=== PATIENT | male | born 1975 | race Caucasian/White ===

== ENCOUNTER 2018-02-23 19:16 | Observation (INO) ==
[2018-02-23] MEDS ORDERED: *HR* FentaNYL (PF) 100 MCG/2 ML VIAL IVP ONE ×2 (19:43→20:55)
[2018-02-23] MEDS ORDERED: Ondansetron 4 MG/2 ML VIAL IVP ONE (19:43)
[2018-02-23 19:54] LABS: Bilirubin,Urine Negative (Negative); Blood,Urine Moderate (Negative); Clarity,Urine Clear (Clear); Color,Urine Yellow (Yellow); Glucose,Urine (UA) Normal (Normal); Ketones,Urine Negative (Negative); Leukocyte Esterase,Urine Negative (Negative); Nitrite,Urine Negative (Negative); Protein,Urine Trace mg/dL (Neg-Trace); Urobilinogen,Urine Normal (Normal)
[2018-02-23 19:56] LABS: Bacteria,Urine None Seen per hpf (None-Few); Hyaline Casts,Urine None Seen per lpf (None-Few); Squamous Epithelial Cell,Urine Many per lpf (None-Few); WBC,Urine 0-3 per hpf (0-3)
--- NOTE | 2018-02-23 19:59 | Emergency Department Note ---
Disposition Clinical Impression: Intractable pain, Kidney stone Disposition: Admitted As Inpatient Condition: Good Forms: ED Satisfaction Letter General Adult HPI - General Chief complaint: ED Urogenital-Male Stated complaint: "Kidney Stones" Time Seen by Provider: 02/23/18 19:32 Source: patient Mode of arrival: ambulatory Limitations: no limitations Nursing Notes Reviewed: Yes Vital Signs Reviewed: Yes - History of Present Illness HPI Narrative: 42-year-old male with significant past medical history of kidney stones presenting to the emergency department chief complaint of penile pain. Patient states for the past month he has been battling a kidney stone. Was seen here and diagnosed with kidney stone. He followed up with Dr. Loren bethea. He was unable to make the appointment due to pain. He came back to the emergency department at that time. Patient states he was taking Percocet at home but has run out. According to the patient he had a KUB x-ray completed that was within normal limits. He has a CT of abdomen and pelvis scheduled for tomorrow at 8: 30 AM. Patient states the pain is too severe and came in for further evaluation. Patient describes the pain at the base of his penis. Denies any abdominal pain, nausea or vomiting. Denies any fevers. Patient states that all of his previous kidney stones he has needed lithotripsy. Pain Scale: 8 - Related Data Home Medications Medication Instructions Recorded Confirmed clonazePAM [Klonopin] 0.5 mg PO BID PRN 11/24/15 01/27/17 Previous Rx's Medication Instructions Recorded OxyCODONE/APAP 5/325 [Percocet 1 each PO Q6HR PRN 5 Days #20 02/17/18 5/325 MG] tablet Allergies Allergy/AdvReac Type Severity Reaction Status Date / Time ketamine AdvReac Dizziness Verified 02/17/18 09:35 meloxicam AdvReac Nausea Verified 02/17/18 09:35 All systems ED: reviewed and negative except as stated. Constitutional: Denies: fever, chills, weakness Eyes: Reports: as per HPI ENT ED: Reports: as per HPI Cardiovascular: Denies: chest pain, palpitations, dyspnea on exertion Respiratory: Denies: cough, dyspnea, wheezes Gastrointestinal: Denies: abdominal pain, nausea, vomiting Genitourinary: Reports: as per HPI Musculoskeletal: Reports: as per HPI Integumentary: Reports: as per HPI Neurological: Denies: weakness, numbness, paresthesias Psychiatric: Reports: as per HPI Endocrine: Reports: as per HPI Hematological/Lymphatic: Reports: as per HPI Allergic/Immunologic: Reports: as per HPI Past Medical History - Past Medical History Attestation: Yes The following information was validated with the patient. Medical history: Reports: kidney stones Surgical history: Reports: appendectomy, other Psychiatric history: Reports: anxiety - Social History Smoking Status: Never smoker Smokeless Tobacco Status: No Alcohol use: Reports: none Drug use: Reports: none Physical Exam - General Limitations: no limitations General appearance: alert - Head Head exam: atraumatic, normocephalic, normal inspection - Eye Eye exam: Present: normal appearance. Absent: scleral icterus, conjunctival injection - ENT ENT exam: normal exam, mucous membranes moist - Neck Neck exam: Present: normal inspection, full ROM. Absent: tenderness, meningismus - Chest Chest inspection: Present: normal inspection, symmetric chest wall rise. Absent : tenderness, rash - Respiratory Respiratory exam: Present: normal lung sounds bilaterally. Absent: respiratory distress, wheezes - Cardiovascular Cardiovascular exam: Present: normal rhythm, tachycardia, normal heart sounds - Abdominal Exam Abdominal exam: Present: soft, Non-Tender. Absent: distention, guarding, rebound - Male exam: Present: normal inspection, normal testicular lie. Absent: penile swelling, lesions, testicular tenderness, urethral discharge, scrotal swelling - Extremities Exam Extremities exam: Present: normal inspection, full ROM - Neurological Exam Neurological exam: Present: alert, oriented X3 - Psychiatric Psychiatric exam: Present: normal affect, normal mood - Skin Skin exam: Present: warm, intact Course Course Narrative: 42-year-old male presenting with chief complaint of penile pain. Patient states penile pain at the base. Patient is alert and oriented 3 in the room. He is tachycardic and hypertensive but otherwise vital signs stable. Physical exam benign. Patient has no penile or testicular tenderness on exam. He states the pain is "deep". At this time we will obtain a urinalysis, CBC, BMP along with a CT of the abdomen and pelvis. Disposition pending results. Patient agrees with this plan. - Reevaluation(s) Reevaluation #1: Patient laboratory analysis benign. Urinalysis shows blood but no infection. After multiple pain management times with Toradol final patient still having significant pain. CT of abdomen and pelvis shows 5 mm stone. I spoke with the urologist on-call Dr. Siddiqi and who agrees that admission for this patient is appropriate. He states that scheduled pain management should be completed and he will provide surgical intervention on Monday. Patient is alert and oriented 3 in the room. His blood pressure has now decreased to 170 systolic. His heart rate has now decreased to 95. Otherwise vital signs stable. Patient agrees to admission. I spoke with the hospitalist on-call who agrees to accept the patient at this time. Vital Signs Temperature 98.2 F 02/23/18 19:28 Pulse Rate 105 02/23/18 19:28 Respiratory Rate 20 02/23/18 19:28 Blood Pressure 222/117 02/23/18 19:28 O2 Sat by Pulse Oximetry 95 02/23/18 19:28 Temperature 98.2 F 02/23/18 20:00 Pulse Rate 98 02/23/18 21:08 Respiratory Rate 20 02/23/18 20:00 Blood Pressure 170/115 02/23/18 21:08 O2 Sat by Pulse Oximetry 95 02/23/18 20:00 Oxygen Delivery Oxygen Delivery Room Air Medical Decision Making - Lab Data Result diagrams: 02/23/18 19:54 02/23/18 19:54 Lab Results 02/23/18 02/23/18 02/23/18 Range/Units 19:42 19:54 19:54 WBC 12.5 H (4.3-11.1) K/mcL RBC 5.13 (4.19-5.50) M/mcL Hgb 14.7 (12.9-16.9) g/dL Hct 43.2 (37.5-50.1) % MCV 84.2 (83.0-100.0) fL MCH 28.7 (28.0-33.3) pg MCHC 34.0 (31.6-35.5) g/dL RDW 12.9 (11.5-14.5) % Plt Count 246 (140-400) K/mcL MPV 9.8 (9.4-12.4) fL Immature Gran % 0.4 (0-4) % Seg Neutrophils % 68.9 % Lymphocytes % 22.0 % Monocytes % 6.7 % Eosinophils % 1.8 % Basophils % 0.2 % Neutrophils # 8.6 (1.6-8.9) K/mcL Lymphocytes # 2.8 (0.6-4.6) K/mcL Monocytes # 0.8 (0.0-1.3) K/mcL Eosinophils # 0.2 (0.0-0.6) K/mcL Basophils # 0.0 (0.0-0.2) K/mcL Sodium 137 (136-145) mEq/L Potassium 3.6 (3.5-5.1) mEq/L Chloride 106 (98-107) mEq/L Carbon Dioxide 22 L (23-29) mEq/L BUN 12 (6-20) mg/dL Creatinine 1.03 (0.70-1.30) mg/dL Est GFR ( Amer) > 60 (> 60) Est GFR (Non-Af Amer) > 60 (> 60) BUN/Creatinine Ratio 12 (6-26) Glucose 124 H (70-105) mg/dL Calculated Osmolality 285 (280-300) Calcium 9.4 (8.6-10.3) mg/dL Urine Color Yellow (Yellow) Urine Clarity Clear (Clear) Urine pH 6.0 (5.0-8.0) pH Units Ur Specific [place] 1.020 (1.010-1.025) Urine Protein Trace (Neg-Trace) mg/dL Urine Glucose (UA) Normal (Normal) mg/dL Urine Ketones Negative (Negative) mg/dL Urine Blood Moderate H (Negative) Urine Nitrite Negative (Negative) Urine Bilirubin Negative (Negative) Urine Urobilinogen Normal (Normal) mg/dL Ur Leukocyte Esterase Negative (Negative) Urine Microscopic RBC 5-15 H (0-3) per hpf Urine Microscopic WBC 0-3 (0-3) per hpf Ur Squamous Epith Cells Many H (None-Few) per lpf Urine Bacteria None Seen (None-Few) per hpf Hyaline Casts None Seen (None-Few) per lpf Ur Culture Indicated? NO (NO)
[2018-02-23 20:05] LABS: Basophils % 0.2 %; Eosinophils # 0.2 K/mcL (0.0-0.6); Eosinophils % 1.8 %; Hematocrit 43.2 % (37.5-50.1); Hemoglobin 14.7 g/dL (12.9-16.9); Immature Granulocytes % 0.4 % (0-4); Lymphocytes # 2.8 K/mcL (0.6-4.6); Mean Corpuscular Hemoglobin 28.7 pg (28.0-33.3); Mean Corpuscular Volume 84.2 fL (83.0-100.0); Mean Platelet Volume 9.8 fL (9.4-12.4); Monocytes # 0.8 K/mcL (0.0-1.3); Monocytes % 6.7 %; Neutrophils # 8.6 K/mcL (1.6-8.9); Platelet Count 246 K/mcL (140-400); Red Blood Count 5.13 M/mcL (4.19-5.50); Red Cell Distribution Width 12.9 % (11.5-14.5); Segmented Neutrophils % 68.9 %
[2018-02-23] MEDS ORDERED: Ketorolac 15 MG/ML VIAL IVP ONE (20:20)
[2018-02-23 20:25] LABS: BUN/Creatinine Ratio 12 (6-26); Blood Urea Nitrogen 12 mg/dL (6-20); Calcium 9.4 mg/dL (8.6-10.3); Carbon Dioxide 22 mEq/L (23-29); Chloride 106 mEq/L (98-107); Glucose 124 mg/dL (70-105); Osmolality,Calculated 285 (280-300); Potassium 3.6 mEq/L (3.5-5.1); Sodium 137 mEq/L (136-145); eGFR For Non-African Americans > 60 (> 60)
[2018-02-23] MEDS ORDERED: Naloxone 0.4 MG/ML INJ IVP PRN (21:20)
[2018-02-23] MEDS ORDERED: clonazePAM 1 MG TABLET PO PRN (21:34)
--- NOTE | 2018-02-23 21:37 | Emergency Department Note ---
Disposition Clinical Impression: Intractable pain, Kidney stone Disposition: Admitted As Inpatient Condition: Good Referrals: Arias Mendoza MD [Primary Care Provider] - Forms: ED Satisfaction Letter General Adult HPI - General Chief complaint: ED Urogenital-Male Stated complaint: "Kidney Stones" Time Seen by Provider: 02/23/18 19:32 Source: patient Mode of arrival: ambulatory Limitations: no limitations Nursing Notes Reviewed: Yes Vital Signs Reviewed: Yes - History of Present Illness Pain Scale: 8 - Related Data Home Medications Medication Instructions Recorded Confirmed Omeprazole [PriLOSEC] 40 mg PO BID 02/23/18 02/23/18 clonazePAM [Klonopin] 1 mg PO BID PRN 02/23/18 02/23/18 Previous Rx's Medication Instructions Recorded OxyCODONE/APAP 5/325 [Percocet 1 each PO Q6HR PRN 5 Days #20 02/17/18 5/325 MG] tablet Allergies Allergy/AdvReac Type Severity Reaction Status Date / Time ketamine AdvReac Dizziness Verified 02/17/18 09:35 meloxicam AdvReac Nausea Verified 02/17/18 09:35 Constitutional: Denies: fever, chills, weakness Eyes: Reports: as per HPI ENT ED: Reports: as per HPI Cardiovascular: Denies: chest pain, palpitations, dyspnea on exertion Respiratory: Denies: cough, dyspnea, wheezes Gastrointestinal: Denies: abdominal pain, nausea, vomiting Genitourinary: Reports: as per HPI Musculoskeletal: Reports: as per HPI Integumentary: Reports: as per HPI Neurological: Denies: weakness, numbness, paresthesias Psychiatric: Reports: as per HPI Endocrine: Reports: as per HPI Hematological/Lymphatic: Reports: as per HPI Allergic/Immunologic: Reports: as per HPI Past Medical History - Past Medical History Medical history: Reports: kidney stones Surgical history: Reports: appendectomy, other Psychiatric history: Reports: anxiety - Social History Smoking Status: Never smoker Smokeless Tobacco Status: No Alcohol use: Reports: none Drug use: Reports: none Physical Exam - General Limitations: no limitations General appearance: alert Course Vital Signs Temperature 98.2 F 02/23/18 19:28 Pulse Rate 105 02/23/18 19:28 Respiratory Rate 20 02/23/18 19:28 Blood Pressure 222/117 02/23/18 19:28 O2 Sat by Pulse Oximetry 95 02/23/18 19:28 Temperature 98.2 F 02/23/18 20:00 Pulse Rate 98 02/23/18 21:08 Respiratory Rate 20 02/23/18 20:00 Blood Pressure 170/115 02/23/18 21:08 O2 Sat by Pulse Oximetry 95 02/23/18 20:00 Oxygen Delivery Oxygen Delivery Room Air Medical Decision Making - Medical Records Medical records reviewed: Yes I reviewed the patient's medical records. - Lab Data Lab results reviewed: Yes I reviewed the patient's lab results. Result diagrams: 02/23/18 19:54 02/23/18 19:54 Lab Results 02/23/18 02/23/18 02/23/18 Range/Units 19:42 19:54 19:54 WBC 12.5 H (4.3-11.1) K/mcL RBC 5.13 (4.19-5.50) M/mcL Hgb 14.7 (12.9-16.9) g/dL Hct 43.2 (37.5-50.1) % MCV 84.2 (83.0-100.0) fL MCH 28.7 (28.0-33.3) pg MCHC 34.0 (31.6-35.5) g/dL RDW 12.9 (11.5-14.5) % Plt Count 246 (140-400) K/mcL MPV 9.8 (9.4-12.4) fL Immature Gran % 0.4 (0-4) % Seg Neutrophils % 68.9 % Lymphocytes % 22.0 % Monocytes % 6.7 % Eosinophils % 1.8 % Basophils % 0.2 % Neutrophils # 8.6 (1.6-8.9) K/mcL Lymphocytes # 2.8 (0.6-4.6) K/mcL Monocytes # 0.8 (0.0-1.3) K/mcL Eosinophils # 0.2 (0.0-0.6) K/mcL Basophils # 0.0 (0.0-0.2) K/mcL Sodium 137 (136-145) mEq/L Potassium 3.6 (3.5-5.1) mEq/L Chloride 106 (98-107) mEq/L Carbon Dioxide 22 L (23-29) mEq/L BUN 12 (6-20) mg/dL Creatinine 1.03 (0.70-1.30) mg/dL Est GFR ( Amer) > 60 (> 60) Est GFR (Non-Af Amer) > 60 (> 60) BUN/Creatinine Ratio 12 (6-26) Glucose 124 H (70-105) mg/dL Calculated Osmolality 285 (280-300) Calcium 9.4 (8.6-10.3) mg/dL Urine Color Yellow (Yellow) Urine Clarity Clear (Clear) Urine pH 6.0 (5.0-8.0) pH Units Ur Specific [place] 1.020 (1.010-1.025) Urine Protein Trace (Neg-Trace) mg/dL Urine Glucose (UA) Normal (Normal) mg/dL Urine Ketones Negative (Negative) mg/dL Urine Blood Moderate H (Negative) Urine Nitrite Negative (Negative) Urine Bilirubin Negative (Negative) Urine Urobilinogen Normal (Normal) mg/dL Ur Leukocyte Esterase Negative (Negative) Urine Microscopic RBC 5-15 H (0-3) per hpf Urine Microscopic WBC 0-3 (0-3) per hpf Ur Squamous Epith Cells Many H (None-Few) per lpf Urine Bacteria None Seen (None-Few) per hpf Hyaline Casts None Seen (None-Few) per lpf Ur Culture Indicated? NO (NO) - Radiology Data Radiology results reviewed: Yes I reviewed the patient's radiology results. Abdomen/Pelvis CT 02/23/18 19:42 IMPRESSION: 5 mm obstructing calculus in the distal right ureter with minimal right hydronephrosis. Additional nonobstructing calculi noted bilaterally. D/ / 02/23/2018 20:42:18 Kiran Claudio MD / [email or web address] Interpreting Provider: Kiran Claudio MD Attestation Statement - Attestation Attestation: I, Hamlet Grady MD, personally evaluated this patient and discussed their management with the resident physician. I reviewed the resident's note and agree with the documented findings, medical decision making, and plan of care. 42-year-old male presents to the emergency department with a complaint of pain at the base of his penis and down into his scrotum secondary to kidney stone. Patient was seen here about 4 weeks for a right kidney stone. He was treated and the pain improved. About 2 weeks later the pain returned. He was seen here again a second time and has had pain since then. He had a follow-up appointment with urology but missed the appointment because of the pain. He returns tonight for the third visit this month with a complaint of worsening pain and no fever. No gross hematuria. On examination patient is a well-developed well-nourished male in no acute distress. He does appear to be in moderate discomfort. He is alert and oriented 3. There is no cyanosis or diaphoresis. Breath sounds are clear and equal bilaterally. Heart regular rate and rhythm. Abdomen is soft and nontender with normal bowel sounds. No CVA tenderness. Labs and CT reviewed. CT does show a distal 5 mm obstructing stone on the right. Dr. Martinez discussed the case with the urologist occupational work experience teacher, Dr. Siddiqi, and he recommended admission by the hospitalist and he will consult on the patient tomorrow. The hospitalist, Dr. Carreno, was consulted and accepted admission of the patient.
--- NOTE | 2018-02-23 21:49 | Internal Med History&Physical ---
<Rodrigo Bocanegra - Last Filed: 02/23/18 21:46> Date of Encounter: 02/23/18 Time of Encounter: 21:46 Internal Medicine - H&P: HPI Chief complaint: Kidney stone Admitted From: Home Plans for Post Hospital Care: Home History of present illness: Mr. Dailey is a 42 year old male presented chief complaint kidney stones. Patient reports that he has a history of kidney stones and his past distended 18 his life. For the past month he has been grappling with penile/testicular pain. Reports he has passed one stone in the past month however he continued to have penile pain at the base of his penis as aching and intermittently sharp 10 out of 10 in nature without associated dysuria. Patient had a appointment , urologist, however this was March 06 and he had run out of his pain medication. His pain became severe and he presented to the ER for further evaluation. He also denies abdominal pain, nausea, vomiting, flank pain, fevers. Past Med Surg Social Fam HX - Past Medical History Medical history: kidney stones Additional medical history: SMOKER. BACK PAIN Psychiatric history: anxiety - Past Surgical History Surgical History: appendectomy, other Additional surgical history: EGD. ESWL X4. KIDNEY STONE EXTRACTION - Social History Smoking Status: Never smoker Smokeless Tobacco Status: No Alcohol use: none Drug use: none Occupational status: disabled - Family History Mother Living Status: Hx Family Cardiac Disorders: Yes Hx Family GI Disorders: Yes (gastroporesis) Hx Family Endocrine Disorder: Yes (fibromyalgia) Father Living Status: Still Living Hx Family Cardiac Disorders: Yes (HTN) Internal Medicine - H&P: Meds OxyCODONE/APAP 5/325 [Percocet 5/325 MG] 1 each PO Q6HR PRN 5 Days #20 tablet [Rx] Omeprazole [PriLOSEC] 40 mg PO BID 02/23/18 [History] clonazePAM [Klonopin] 1 mg PO BID PRN 02/23/18 [History] HYDROcodone/Acet 5/325 mg [[place] 5-325 mg] 1 tab PO Q6H PRN 2 Days #6 tab [Rx] hydroCHLOROthiazide [Hydrochlorothiazide] 25 mg PO DAILY #30 tablet 02/25/18 [Rx ] 3 Allergy/AdvReac Type Severity Reaction Status Date / Time ketamine AdvReac Dizziness Verified 02/17/18 09:35 meloxicam AdvReac Nausea Verified 02/17/18 09:35 All Systems PM: A 10-system review of systems was performed and is negative for pertinent findings except as documented above in the HPI. Review of systems: Constitutional: Denies fever, chills HEENT: Denies headache, vision changes, neck pain, sore throat, rhinorrhea Heart: Denies chest pain palpitations Lungs: Denies shortness of breath cough Abdomen: Denies abdominal pain nausea vomiting diarrhea Back: Denies back pain Kidney: Denies dysuria, hematuria. Denies flank pain : Penile pain, denies discharge Skin: Denies rash, lesions Extremities: Denies swelling, pain Neuro: Denies numbness and tingling - Constitutional Vitals: Temp Pulse Resp BP Pulse Ox 98.2 F 98 20 170/115 95 02/23/18 20:00 02/23/18 21:08 02/23/18 20:00 02/23/18 21:08 02/23/18 20:00 Exam: General: Pleasant I will distress HEENT: Head atraumatic, normocephalic, EOMI, PERRL, neck nontender to palpation , absent lymphadenopathy, Moist Mucous Membranes, Heart: Regular rate and rhythm with no murmur Lungs: Clear to auscultation bilaterally Abdomen: Soft nontender, nondistended positive bowel sounds Skin: warm and dry, absent rash Extremities: Absent pedal edema, Neuro: Cranial nerves II through XII intact, UE and LE sensation equal bilaterally, UE and LEstrength 5/5, alert oriented 3, Vascular: Pedal and radial pulses 2 out of 4 Internal Med - H&P Results - Labs CBC & Chem 7: 02/23/18 19:54 02/23/18 19:54 Labs: Short CBC 02/23/18 Range/Units 19:54 WBC 12.5 H (4.3-11.1) K/mcL Hgb 14.7 (12.9-16.9) g/dL Hct 43.2 (37.5-50.1) % Plt Count 246 (140-400) K/mcL Neutrophils # 8.6 (1.6-8.9) K/mcL BMP 02/23/18 19:54 Sodium 137 Potassium 3.6 Chloride 106 Carbon Dioxide 22 L BUN 12 Creatinine 1.03 Glucose 124 H Calcium 9.4 Urine 02/23/18 Range/Units 19:42 Urine Color Yellow (Yellow) Urine Clarity Clear (Clear) Urine pH 6.0 (5.0-8.0) pH Units Ur Specific [place] 1.020 (1.010-1.025) Urine Protein Trace (Neg-Trace) mg/dL Urine Glucose (UA) Normal (Normal) mg/dL - Impressions ITS Impressions Abdomen/Pelvis CT 02/23/18 19:42 IMPRESSION: 5 mm obstructing calculus in the distal right ureter with minimal right hydronephrosis. Additional nonobstructing calculi noted bilaterally. D/ / 02/23/2018 20:42:18 Kiran Claudio MD / [facility] Interpreting Provider: Kiran Claudio MD - Assessment and plan (1) Hydronephrosis with obstructing calculus Status: Acute Assessment and plan: 42 -year-old patient presented with chief complaint of sharp/aching pain at the base of his penis Patient has history of kidney stones and reports he has had multiple visits to the ER in the past month and has passed one stone Patient has been using Percocet for pain control CT abdomen pelvis shows a 5 mm obstructing calculi in the right ureter with mild hydronephrosis Urology was consulted and patient will undergo surgical intervention on Monday. Plan: Oxycodone/tordol when necessary for pain control, Flomax, IV fluids. (2) DVT prophylaxis Status: Acute Assessment and plan: Heparin subcutaneous (3) Hx of anxiety disorder Status: Acute Assessment and plan: Patient has history of anxiety disorder He takes Klonopin outpatient which we will continue. (4) Hypertension Status: Acute Assessment and plan: Patient does not have a history of hypertension Presenting blood pressure was in systolics to 220s. But now decreased to systolics 170s. Likely secondary to pain We will trend blood pressure. Qualifiers: Hypertension type: other secondary hypertension Qualified Code(s): I15.8 - Other secondary hypertension (5) Kidney stone Status: Acute Assessment and plan: Patient has a history of kidney stones Reports her calcium oxalate He has passsed 70- 80 stones in his life and underwent multiple lithotripsies. Patient has never been on a thiazide diuretic which can help decrease stone formation. (6) Hx of gastroesophageal reflux (GERD) Status: Acute Assessment and plan: Patient's history of gastric reflux disease Continue omeprazole. - Time Spent With Patient Total time spent is greater than 50% in coordination of care (as documented) at patient's floor/unit and/or counseling patient: <Veronica Alvarado - Last Filed: 02/25/18 23:31> Date of Encounter: 02/23/18 Internal Medicine - H&P: HPI History of present illness: Mr. Dailey is a 42 year old male All Systems PM: A 10-system review of systems was performed and is negative for pertinent findings except as documented above in the HPI. - Constitutional Vitals: Temp Pulse Resp BP Pulse Ox 98.3 F 105 16 158/91 94 02/25/18 10:30 02/25/18 10:30 02/25/18 10:30 02/25/18 14:15 02/25/18 10:30 Internal Med - H&P Results - Labs CBC & Chem 7: 02/25/18 06:09 02/25/18 06:09 Labs: Short CBC 02/25/18 Range/Units 06:09 WBC 12.4 H (4.3-11.1) K/mcL Hgb 14.2 (12.9-16.9) g/dL Hct 42.3 (37.5-50.1) % Plt Count 229 (140-400) K/mcL Neutrophils # 8.2 (1.6-8.9) K/mcL BMP 02/25/18 06:09 Sodium 136 Potassium 3.6 Chloride 101 Carbon Dioxide 25 BUN 13 Creatinine 1.10 Glucose 97 Calcium 9.4 - Assessment and plan (1) Hypertension Status: Acute Qualifiers: Hypertension type: other secondary hypertension Qualified Code(s): I15.8 - Other secondary hypertension (2) DVT prophylaxis Status: Acute (3) Kidney stone Status: Acute (4) Hydronephrosis with obstructing calculus Status: Acute (5) Hx of anxiety disorder Status: Chronic (6) Hx of gastroesophageal reflux (GERD) Status: Chronic - Time Spent With Patient Total time spent is greater than 50% in coordination of care (as documented) at patient's floor/unit and/or counseling patient: - Attending Attestation Patient seen and examined. Chart reviewed. Case discussed with resident. Agree with assessment and plan. We will admit for observation for nephrolithiasis. Consider urology consult in the morning.
[2018-02-23] MEDS: 0.9 % Sodium Chloride 1,000 ML IVC SCH (22:56)
[2018-02-23] MEDS: *HR* OxyCODONE Immed Rel 5 MG TABLET PO PRN (22:56)
[2018-02-23] MEDS: *HR* Heparin 5,000 UNIT/ML VIAL SQ SCH (22:57)
[2018-02-24] MEDS: Ketorolac 15 MG/ML VIAL IVP PRN ×3 (00:32→16:19)
[2018-02-24] MEDS ORDERED: *HR* Nalbuphine 10 MG/ML AMPUL IVP ONE (00:46)
[2018-02-24] MEDS: Ondansetron 4 MG/2 ML VIAL IVP PRN ×3 (02:24→16:19)
[2018-02-24] MEDS: *HR* Heparin 5,000 UNIT/ML VIAL SQ SCH ×3 (04:52→20:58)
[2018-02-24] MEDS: 0.9 % Sodium Chloride 1,000 ML IVC SCH (04:58)
[2018-02-24] MEDS: *HR* OxyCODONE Immed Rel 5 MG TABLET PO PRN (04:59)
[2018-02-24 06:46] LABS: Hematocrit 40.3 % (37.5-50.1); Hemoglobin 13.3 g/dL (12.9-16.9); Mean Corpuscular Hemoglobin 28.4 pg (28.0-33.3); Mean Corpuscular Volume 86.1 fL (83.0-100.0); Mean Platelet Volume 9.9 fL (9.4-12.4); Platelet Count 214 K/mcL (140-400); Red Blood Count 4.68 M/mcL (4.19-5.50)
[2018-02-24 07:07] LABS: Alanine Aminotransferase 32 Units/L (7-52); Albumin 3.7 g/dL (3.5-5.7); Albumin/Globulin Ratio 1.5 (1.1-2.2); Alkaline Phosphatase 75 Units/L (34-104); Aspartate Amino Transferase 19 Units/L (13-39); BUN/Creatinine Ratio 13 (6-26); Bilirubin,Total 0.2 mg/dL (0.3-1.0); Blood Urea Nitrogen 13 mg/dL (6-20); Calcium 8.6 mg/dL (8.6-10.3); Carbon Dioxide 25 mEq/L (23-29); Chloride 107 mEq/L (98-107); Globulin 2.4 g/dL (2.4-3.5); Glucose 130 mg/dL (70-105); Osmolality,Calculated 286 (280-300); Potassium 3.5 mEq/L (3.5-5.1); Sodium 137 mEq/L (136-145); Total Protein 6.1 g/dL (6.4-8.9); eGFR For Non-African Americans > 60 (> 60)
[2018-02-24] MEDS: *HR* HYDROmorphone 2 MG/ML SYRINGE IVP PRN ×2 (09:38→13:53)
--- NOTE | 2018-02-24 10:56 | Internal Med Progress Note ---
Hospitalist Progress Note - Encounter Date of Encounter: 02/24/18 Time of Encounter: 10:15 - Subjective Interval History: Pt was seen and assessed at bedside at 1015. He is alert, awake, oriented, pleasant, and appears to be comfortable. We discussed his blood pressure and he reports that he did not like the way the hydralazine made him feel and that he had taken HCTZ in the past, will try it. He denies nausea, vomiting, diarrhea, abdominal pain, chest pain, shortness of breath of vision changes. He denies merle hematuria and at this time denies flank pain. Pt will have urological procedure tomorrow by Dr. Siddiqi, he is aware and denies questions. - Exam Vitals: Temp Pulse Resp BP Pulse Ox 98.3 F 58 18 187/103 96 02/24/18 10:02/24/18 10:02/24/18 10:01 02/24/18 10:02/24/18 10:01 Exam: General: Pt resting quietly on bed, no distress. Skin: pwd, no rashes, lesions, redness Neurological: Pt is alert and awake, oriented x 3, Speech is clear, PERRLA, EOMI , no nystagmus, no pronator drift. strength equal x 4 extremities HEENT: mucous mumbranes moist, no conjuctival pallor Neck: supple, no tracheal deviation, no lymphadenopathy, tenderness, no thyromegaly Heart: S1S2 heard without gallops, clicks, murmurs, no bradycardia or tachycardia, pt has no peripheral edema, pedal and radial pulses palpable bilaterally. Lungs: clear throughout without wheezing, rales, or ronchi, respirations are unlabored Abdomen: soft and non tender with bowel sound present, no hepatomegaly. Psych: Normal affect with good eye contact - Assessment and Plan (1) Hypertension Current Visit: Yes Status: Acute Assessment and Plan: Patient does not have a history of hypertension other than when he has kidney stones. Presenting blood pressure was in systolics to 220s. Little to no change in BP with hydralazine IV. Pt states that he took HCTZ in the past for same. Started this a.m. Likely secondary to pain We will trend blood pressure. (2) DVT prophylaxis Current Visit: Yes Status: Acute Assessment and Plan: Heparin subcutaneous, pt is ambulatory. (3) Kidney stone Current Visit: Yes Status: Acute Assessment and Plan: Patient has a history of calcium oxalate kidney stones He has passsed 70- 80 stones in his life and underwent multiple lithotripsies. Patient has never been on a thiazide diuretic which can help decrease stone formation. Pt has 5 mm obstructing stone in distal right ureter with minimal right hydronephrosis, as well as additional nonobstructin calculi noted bilaterally. IVF hydration pain control urology following- procedure tomorrow. (4) Hydronephrosis with obstructing calculus Current Visit: Yes Status: Acute Assessment and Plan: 42 -year-old patient presented with chief complaint of sharp/aching pain at the base of his penis Reports he has had multiple visits to the ER in the past month and has passed one stone Patient has been using Percocet for pain control CT abdomen pelvis shows a 5 mm obstructing calculi in the right ureter with mild hydronephrosis Urology following, surgical intervention on Monday. Pain control: Oxycodone, Toradol. Flomax IVF hydration (5) Hx of anxiety disorder Current Visit: Yes Status: Chronic Assessment and Plan: Chronic. Continue Klonipin home dose. (6) Hx of gastroesophageal reflux (GERD) Current Visit: Yes Status: Chronic Assessment and Plan: Chronic. Continue home dose of Omeprazole. - Time Spent with Patient Total time spent is greater than 50% in coordination of care (as documented) at patient's floor/unit and/or counseling patient: less than 15 minutes Plan of Care Discussed with: patient Internal Medicine: Result - Labs CBC & Chem 7: 02/24/18 06:11 02/24/18 06:11 Labs: Short CBC 02/24/18 Range/Units 06:11 WBC 10.3 (4.3-11.1) K/mcL Hgb 13.3 (12.9-16.9) g/dL Hct 40.3 (37.5-50.1) % Plt Count 214 (140-400) K/mcL BMP 02/24/18 06:11 Sodium 137 Potassium 3.5 Chloride 107 Carbon Dioxide 25 BUN 13 Creatinine 1.03 Glucose 130 H Calcium 8.6 Liver Function 02/24/18 Range/Units 06:11 Total Bilirubin 0.2 L (0.3-1.0) mg/dL AST 19 (13-39) Units/L ALT 32 (7-52) Units/L Alkaline Phosphatase 75 (34-104) Units/L Albumin 3.7 (3.5-5.7) g/dL Consult Discharge Plan - Plan Referrals: Arias Mendoza MD [Primary Care Provider] - (1) Hypertension Qualifiers: Hypertension type: other secondary hypertension Qualified Code(s): I15.8 - Other secondary hypertension
[2018-02-24] MEDS ORDERED: hydroCHLOROthiazide 25 MG TABLET PO SCH (11:00)
--- NOTE | 2018-02-24 12:17 | Urology - Consult Note ---
Date of Encounter: 02/24/18 Time of Encounter: 12:14 - Assessment and Plan (1) Right distal ureteral calculus Current Visit: Yes Status: Acute Assessment and plan: We will attempt medical expulsion therapy today. If patient unable to pass a stone he will be scheduled tomorrow for right ureteroscopic stone extraction. Informed consent was obtained and placed in the chart. (2) Uncontrolled hypertension Current Visit: No Status: Acute Assessment and plan: Will increase his pain medicine to IV Dilaudid. If this fails to control his blood pressure may need to consider other intervention. Urology CN:HPI Consult date: 02/24/18 Reason for consult Urology: Hydronephrosis Requesting physician: Claire Dailey History of present illness: Curtis is a 42-year-old male well known to me secondary to recurrent kidney stones. Patient presented emergency department last night secondary to severe right-sided flank pain. Patient was also found to have severely elevated blood pressure. CT scan was done which revealed a 5 mm distal right ureteral stone. Patient's pain is located on his right side with some radiation to his right groin. Pain is a 10 out of 10 in nature. No current vomiting but occasional nausea. No fevers. Past Med Surg Social Fam HX - Past Medical History Medical history: kidney stones Additional medical history: SMOKER. BACK PAIN Psychiatric history: anxiety - Past Surgical History Surgical History: appendectomy, other Additional surgical history: EGD. ESWL X4. KIDNEY STONE EXTRACTION - Social History Smoking Status: Never smoker Smokeless Tobacco Status: No Alcohol use: none Drug use: none - Family History Mother Living Status: Hx Family Cardiac Disorders: Yes Hx Family GI Disorders: Yes (gastroporesis) Hx Family Endocrine Disorder: Yes (fibromyalgia) Father Living Status: Still Living Hx Family Cardiac Disorders: Yes (HTN) Medications and Allergies OxyCODONE/APAP 5/325 [Percocet 5/325 MG] 1 each PO Q6HR PRN 5 Days #20 tablet [Rx] Omeprazole [PriLOSEC] 40 mg PO BID 02/23/18 [History] clonazePAM [Klonopin] 1 mg PO BID PRN 02/23/18 [History] 3 Allergy/AdvReac Type Severity Reaction Status Date / Time ketamine AdvReac Dizziness Verified 02/17/18 09:35 meloxicam AdvReac Nausea Verified 02/17/18 09:35 Review of Systems - Constitutional no chills, no fatigue, no fever(s) - EENT Nose, mouth and throat: no dizziness, no throat swelling - Cardiovascular no chest pain, no dyspnea - Respiratory no cough - Gastrointestinal abdominal pain, nausea, no vomiting - Genitourinary flank pain, no genital pain - Musculoskeletal back pain, no muscle weakness - Integumentary no erythema, no swelling - Neurological no confusion - Psychiatric no confusion, no depression - Hematologic/Lymphatic no easy bleeding, no easy bruising, no lymphadenopathy - Allergic/Immunologic no throat swelling, no wheezing Exam Initial Vital Signs Temp Pulse Resp BP Pulse Ox 98.2 F 105 20 222/117 95 02/23/18 19:28 02/23/18 19:28 02/23/18 19:28 02/23/18 19:28 02/23/18 19:28 General/Neuological: alert and oriented x 3 Eyes: normal pupils, non-icteric Neck: no lymphadenopathy noted, supple to touch Cardiovascular: RRR, no murmurs Respiratory: normal respiratory effort, clear bilaterally ABD: soft, nontender, no masses palpated, good bowel sounds Back: no pain on percussion bilaterally Skin: no rashes noted Musculoskeletal: normal gait, FROMx4 Urology Results - Labs 02/24/18 06:11 02/24/18 06:11 Abnormal lab results Glucose 130 mg/dL (70-105) H 02/24/18 06:11 Total Bilirubin 0.2 mg/dL (0.3-1.0) L 02/24/18 06:11 Serum Total Protein 6.1 g/dL (6.4-8.9) L 02/24/18 06:11 Urine Blood Moderate (Negative) H 02/23/18 19:42 Urine Microscopic RBC 5-15 per hpf (0-3) H 02/23/18 19:42 Ur Squamous Epith Cells Many per lpf (None-Few) H 02/23/18 19:42 Diabetes panel 02/24/18 Range/Units 06:11 Sodium 137 (136-145) mEq/L Potassium 3.5 (3.5-5.1) mEq/L Chloride 107 (98-107) mEq/L Carbon Dioxide 25 (23-29) mEq/L BUN 13 (6-20) mg/dL Creatinine 1.03 (0.70-1.30) mg/dL Glucose 130 H (70-105) mg/dL Calcium 8.6 (8.6-10.3) mg/dL AST 19 (13-39) Units/L ALT 32 (7-52) Units/L Alkaline Phosphatase 75 (34-104) Units/L Albumin 3.7 (3.5-5.7) g/dL Calcium panel 02/24/18 Range/Units 06:11 Calcium 8.6 (8.6-10.3) mg/dL Albumin 3.7 (3.5-5.7) g/dL Pituitary panel 02/24/18 Range/Units 06:11 Sodium 137 (136-145) mEq/L Potassium 3.5 (3.5-5.1) mEq/L Chloride 107 (98-107) mEq/L Carbon Dioxide 25 (23-29) mEq/L BUN 13 (6-20) mg/dL Creatinine 1.03 (0.70-1.30) mg/dL Glucose 130 H (70-105) mg/dL Calcium 8.6 (8.6-10.3) mg/dL Adrenal panel 02/24/18 Range/Units 06:11 Sodium 137 (136-145) mEq/L Potassium 3.5 (3.5-5.1) mEq/L Chloride 107 (98-107) mEq/L Carbon Dioxide 25 (23-29) mEq/L BUN 13 (6-20) mg/dL Creatinine 1.03 (0.70-1.30) mg/dL Glucose 130 H (70-105) mg/dL Calcium 8.6 (8.6-10.3) mg/dL Total Bilirubin 0.2 L (0.3-1.0) mg/dL AST 19 (13-39) Units/L ALT 32 (7-52) Units/L Alkaline Phosphatase 75 (34-104) Units/L Albumin 3.7 (3.5-5.7) g/dL All other labs normal. - Imaging CT scan - abdomen: image reviewed CT scan - pelvis: image reviewed (CT abdomen and pelvis reviewed which revealed a 5 mm distal right ureteral stone) Consult Discharge Plan - Plan Referrals: Arias Mendoza MD [Primary Care Provider] -
[2018-02-24] MEDS: Acetaminophen 325 MG TABLET PO PRN (19:45)
[2018-02-25] MEDS: Acetaminophen 325 MG TABLET PO PRN (01:22)
[2018-02-25] MEDS: Ketorolac 15 MG/ML VIAL IVP PRN (01:27)
[2018-02-25] MEDS: *HR* Heparin 5,000 UNIT/ML VIAL SQ SCH (03:59)
[2018-02-25 06:44] LABS: Basophils % 0.3 %; Eosinophils # 0.3 K/mcL (0.0-0.6); Eosinophils % 2.3 %; Hematocrit 42.3 % (37.5-50.1); Hemoglobin 14.2 g/dL (12.9-16.9); Immature Granulocytes % 0.4 % (0-4); Lymphocytes % 24.5 %; Mean Corpuscular HGB Conc 33.6 g/dL (31.6-35.5); Mean Corpuscular Hemoglobin 28.2 pg (28.0-33.3); Mean Corpuscular Volume 83.9 fL (83.0-100.0); Mean Platelet Volume 9.8 fL (9.4-12.4); Monocytes # 0.8 K/mcL (0.0-1.3); Monocytes % 6.5 %; Neutrophils # 8.2 K/mcL (1.6-8.9); Platelet Count 229 K/mcL (140-400); Red Blood Count 5.04 M/mcL (4.19-5.50); Red Cell Distribution Width 12.9 % (11.5-14.5)
[2018-02-25] MEDS ORDERED: *HR* Midazolam HCl 2 MG/2 ML VIAL ONE (07:17)
[2018-02-25] MEDS ORDERED: *HR* Propofol 200 MG/20 ML VIAL IVP ONE (07:17)
[2018-02-25] MEDS ORDERED: *HR* FentaNYL (PF) 100 MCG/2 ML VIAL ONE (07:17)
[2018-02-25] MEDS ORDERED: Ondansetron 4 MG/2 ML VIAL ONE (07:19)
[2018-02-25] MEDS ORDERED: Dexamethasone 4 MG/ML VIAL ONE (07:19)
[2018-02-25] MEDS ORDERED: Lidocaine -MPF 2% 2 ML VIAL ONE (07:19)
--- NOTE | 2018-02-25 07:31 | Anesthesia Evaluation PreOp ---
Date of Encounter: 02/25/18 Time of Encounter: 07:29 - Past History Planned Operation: RIGHT USE Cardiac History: HTN Pulmonary History: Denies Any Significant HX [employer]ARD[employer]ERIAL[employer]IVER History: Other (ANXIETY) Other Medical History: GERD (CONTROLLED), Other (OBESITY) Anesthesia History: No Prior Anesthetic Complications, Past Anesthesia (SEVERAL USE) Alcohol Use: none Drug use: none Medications and Allergies OxyCODONE/APAP 5/325 [Percocet 5/325 MG] 1 each PO Q6HR PRN 5 Days #20 tablet [Rx] Omeprazole [PriLOSEC] 40 mg PO BID 02/23/18 [History] clonazePAM [Klonopin] 1 mg PO BID PRN 02/23/18 [History] 3 Allergy/AdvReac Type Severity Reaction Status Date / Time ketamine AdvReac Dizziness Verified 02/17/18 09:35 meloxicam AdvReac Nausea Verified 02/17/18 09:35 - Meds/Allergy Pre-op Review Medications Reviewed: Yes Allergies Reviewed: Yes Beta Blockers on Current Med List: No Anesthesia Results - Labs 02/25/18 06:09 02/24/18 06:11 Anesthesia Exam O2 Sat Weight 110.9 kg O2 Sat by Pulse Oximetry 96 O2 Sat by Pulse Oximetry 95 O2 Sat by Pulse Oximetry 95 O2 Sat by Pulse Oximetry 96 O2 Sat by Pulse Oximetry 97 Vital Signs Temp Pulse Resp BP Pulse Ox 98.2 F 105 20 222/117 95 02/23/18 19:28 02/23/18 19:28 02/23/18 19:28 02/23/18 19:28 02/23/18 19:28 Weight 110.9 kg HEIGHT 1.73 m BMI 37 NPO (# of Hours): 8 - HEENT Pupil (Motor): Pupils equal Mallampati: I Teeth: Normal Oral Opening: Greater than 3 - Cardiac Rhythm: Regular - Pulmonary Breath Sounds: bilateral Clear Respiratory Effort: Symmetrical - Additional Findings Active Medications Acetaminophen (Tylenol) 650 mg PO Q6HR PRN PRN Reason: Pain Stop: 08/26/18 19:37 Last Admin: 02/25/18 01:22 Dose: 650 mg Clonazepam (Klonopin) 1 mg PO BID PRN PRN Reason: Anxiety Stop: 08/25/18 21:35 Last Admin: 02/24/18 21:54 Dose: 1 mg Heparin Sodium (Porcine) (Heparin) 5,000 unit SQ Q8HCO [facility] Stop: 08/25/18 22:01 Last Admin: 02/25/18 03:59 Dose: Not Given Hydralazine HCl (Hydralazine) 10 mg IVP Q6HR PRN PRN Reason: Hypertension Stop: 08/26/18 08:05 Last Admin: 02/24/18 19:25 Dose: 10 mg Hydrochlorothiazide (Hydrochlorothiazide) 25 mg PO DAILY [facility] PRN Reason: Protocol Stop: 08/26/18 11:01 Last Admin: 02/24/18 11:49 Dose: 25 mg Hydromorphone HCl (Dilaudid) 1 mg IVP Q4HR PRN; Protocol PRN Reason: pain 7-10 not relieved by oral Stop: 08/26/18 09:09 Last Admin: 02/24/18 13:53 Dose: 1 mg Ketorolac Tromethamine (Toradol) 15 mg IVP Q6HR PRN PRN Reason: MODERATE PAIN Stop: 02/28/18 21:27 Last Admin: 02/25/18 01:27 Dose: 15 mg Naloxone HCl (Narcan) 0.4 mg IVP Q2MIN PRN PRN Reason: SEE COMMENTS Stop: 08/25/18 21:21 Omeprazole (Prilosec) 40 mg PO BID [facility] Stop: 08/26/18 09:01 Last Admin: 02/24/18 21:54 Dose: 40 mg Ondansetron HCl (Zofran) 4 mg IVP Q6HR PRN; Protocol PRN Reason: Nausea Stop: 08/26/18 02:13 Last Admin: 02/24/18 16:19 Dose: 4 mg Oxycodone HCl (Roxicodone) 10 mg PO Q6HR PRN PRN Reason: Severe Pain Stop: 08/25/18 21:21 Last Admin: 02/24/18 04:59 Dose: 10 mg Tamsulosin HCl (Flomax) 0.4 mg PO DAILY [facility] PRN Reason: Protocol Stop: 08/25/18 21:31 Last Admin: 02/24/18 08:17 Dose: 0.4 mg Anesthesia Assess/Plan ASA Score: 3 Modified Abigail Scale for Level of Consciousness: Cooperative, oriented, and tranquil Anesthetic Plan: General Monitoring Plan: Standard Monitors Recovery Plan: PACU
--- NOTE | 2018-02-25 07:37 | Urology Progress Note ---
Date of Encounter: 02/25/18 Time of Encounter: 07:35 - Assessment and Plan (1) Right distal ureteral calculus Current Visit: Yes Status: Acute Assessment and plan: to OR today for right stone extraction. (2) Uncontrolled hypertension Current Visit: No Status: Acute Progress Note Narrative: patient seen. still with pain. Objective Initial Vital Signs Temp Pulse Resp BP Pulse Ox 98.2 F 105 20 222/117 95 02/23/18 19:28 02/23/18 19:28 02/23/18 19:28 02/23/18 19:28 02/23/18 19:28 - General physical appearance Present: well developed, well nourished - Abdomen Present: soft. Absent: tender - Integumentary Present: no rash, no growths - Labs 02/25/18 06:09 02/24/18 06:11 Consult Discharge Plan - Plan Referrals: Arias Mendoza MD [Primary Care Provider] -
[2018-02-25] MEDS ORDERED: *HR* Promethazine 25 MG/ML VIAL IVP PRN (08:07)
[2018-02-25] MEDS ORDERED: Ondansetron 4 MG/2 ML VIAL IVP ONE (08:07)
[2018-02-25] MEDS ORDERED: *HR* Labetalol 20 MG/4 ML SYRINGE IVP PRN (08:07)
--- NOTE | 2018-02-25 08:18 | Operative Note ---
Date of procedure: 02/25/18 Pre-op diagnosis: right distal ureteral stone Post-op diagnosis: same Procedure: Right ureteroscopic laser lithotripsy of stone, right ureteroscopic basket retrieval stone fragment Anesthesia: GETA Surgeon: Flaco Siddiqi Was there an embroidery assistant present: No Estimated blood loss (cc): 0 Specimen: none Condition: stable Disposition: PACU Procedure in Detail: Patient was prepped and draped in normal sterile fashion. Timeout procedure performed. I then inserted the semirigid ureteroscope into the patient's urethra and advanced into the bladder. I was able to easily cannulate the right ureteral orifice as this was very spatulated. I encountered the impacted distal 5 mm ureteral stone. I then using holmium laser to fragment the stone. All stone fragments were then removed from the ureter using a basket device. The entire ureter was then fully surveyed with no further stones seen. Bladder was drained and procedure was ended. Patient taken to PACU in stable condition.
--- NOTE | 2018-02-25 08:19 | Event Note ---
Date of Encounter: 02/25/18 Time of Encounter: 08:18 Patient is okay to discharge home later today once recovered from anesthesia. He will need a follow-up with me in the next 3-4 weeks.
[2018-02-25] MEDS: *HR* HYDROmorphone (PF) 1 MG/ML SYRINGE IVP PRN ×4 (08:31→08:55)
--- NOTE | 2018-02-25 09:09 | Anesthesia Evaluation Post Op ---
Date of Encounter: 02/25/18 Time of Encounter: 09:07 - Discharge PostOp Status: Transfer Patient to floor (Patient's vital signs have been reviewed. Patient is stable postoperatively and has adequately recovered from anesthesia. Patient is determined to have stable airway patency and respiratory function including respiratory rate and oxygen saturation. Patient has a stable heart rate, blood pressure and adequate hydration. Patients mental status is acceptable. Patients temperature is appropriate. Pain and nausea are adequately controlled.)
[2018-02-25 09:25] LABS: BUN/Creatinine Ratio 12 (6-26); Blood Urea Nitrogen 13 mg/dL (6-20); Calcium 9.4 mg/dL (8.6-10.3); Carbon Dioxide 25 mEq/L (23-29); Chloride 101 mEq/L (98-107); Glucose 97 mg/dL (70-105); Osmolality,Calculated 282 (280-300); Potassium 3.6 mEq/L (3.5-5.1); Sodium 136 mEq/L (136-145); eGFR For Non-African Americans > 60 (> 60)
[2018-02-25] MEDS ORDERED: Ondansetron 4 MG/2 ML VIAL IVP PRN (09:30)
[2018-02-25] MEDS ORDERED: clonazePAM 1 MG TABLET PO PRN (09:30)
[2018-02-25] MEDS ORDERED: *HR* HYDROmorphone 2 MG/ML SYRINGE IVP PRN (09:30)
[2018-02-25] MEDS ORDERED: Acetaminophen 325 MG TABLET PO PRN (09:30)
[2018-02-25] MEDS ORDERED: *HR* OxyCODONE Immed Rel 5 MG TABLET PO PRN (09:30)
[2018-02-25] MEDS ORDERED: Ketorolac 15 MG/ML VIAL IVP PRN (09:30)
[2018-02-25] MEDS ORDERED: hydroCHLOROthiazide 25 MG TABLET PO SCH (10:15)
[2018-02-25] MEDS ORDERED: cloNIDine HCl 0.1 MG TABLET PO ONE (12:43)
--- NOTE | 2018-02-25 12:46 | Discharge Summary ---
Date of Encounter: 02/25/18 Time of Encounter: 09:55 - Discharge Diagnosis (1) Hypertension Priority: Secondary Status: Acute Assessment and Plan: Patient does not have a history of hypertension other than when he has kidney stones. Presenting blood pressure was in systolics to 220s. Little to no change in BP with hydralazine IV. Pt states that he took HCTZ in the past for same. Started this a.m. Likely secondary to pain Pt will be sent home with rx for HCTZ 25mg po daily, Clonidine 0.1mg po x 1 dose for here prior to discharge. Qualifiers: Hypertension type: other secondary hypertension Qualified Code(s): I15.8 - Other secondary hypertension (2) DVT prophylaxis Priority: Secondary Status: Acute Assessment and Plan: Heparin subcutaneous, pt is ambulatory. (3) Kidney stone Priority: Secondary Status: Acute Assessment and Plan: Patient has a history of calcium oxalate kidney stones He has passsed 70- 80 stones in his life and has undergone multiple lithotripsies. Patient has never been on a thiazide diuretic which can help decrease stone formation, will be sent home with HCTZ 25mg po daily, discuss with PCP continuation of medication. Pt has 5 mm obstructing stone in distal right ureter with minimal right hydronephrosis, as well as additional nonobstructin calculi noted bilaterally. Right ureteroscopic laser lithtripsy of stone, right ureteroscopic basket retrieval stone fragment done today by Dr. Siddiqi. IVF hydration pain control Follow up with urology in the clinic. (4) Hydronephrosis with obstructing calculus Priority: Secondary Status: Acute Assessment and Plan: chief complaint of sharp/aching pain at the base of his penis Reports he has had multiple visits to the ER in the past month and has passed one stone Patient has been using Percocet for pain control CT abdomen pelvis shows a 5 mm obstructing calculi in the right ureter with mild hydronephrosis Urology following, lithotripsy today. Follow with urology in the the clinic as scheduled. Pain control Flomax IVF hydration (5) Hx of anxiety disorder Priority: Secondary Status: Chronic Assessment and Plan: Chronic. Continue Klonipin home dose. (6) Hx of gastroesophageal reflux (GERD) Priority: Secondary Status: Chronic Assessment and Plan: Chronic. Continue home dose of Omeprazole. Hospital course: Please see assesment and plan for hospital course. Discharge discussed with: patient, family - Time Spent with Patient Total time spent providing and/or coordinating discharge services: Less than 30 minutes - Discharge Medications Prescriptions: hydroCHLOROthiazide [Hydrochlorothiazide] 25 mg PO DAILY #30 tablet Home Medications: OxyCODONE/APAP 5/325 [Percocet 5/325 MG] 1 each PO Q6HR PRN 5 Days #20 tablet [Rx] Omeprazole [PriLOSEC] 40 mg PO BID 02/23/18 [History] clonazePAM [Klonopin] 1 mg PO BID PRN 02/23/18 [History] hydroCHLOROthiazide [Hydrochlorothiazide] 25 mg PO DAILY #30 tablet 02/25/18 [Rx ] Allergies/Adverse Reactions: 3 Allergy/AdvReac Type Severity Reaction Status Date / Time ketamine AdvReac Dizziness Verified 02/17/18 09:35 meloxicam AdvReac Nausea Verified 02/17/18 09:35 Date of admission: 02/23/18 21:45 Primary care physician: Arias Mendoza MD Discharging clinician: Claire Dailey Anticipated date of discharge: 02/25/18 - Constitutional Vitals: Temp Pulse Resp BP Pulse Ox 97.8 F 80 16 166/100 93 02/25/18 08:52 02/25/18 09:02 02/25/18 09:02 02/25/18 09:02 02/25/18 09:02 General appearance: Present: cooperative, A&O X 3, pleasant, no acute distress, answers questions appropriately Exam: as above - Head Head exam: Present: atraumatic, normal inspection, normocephalic - Eye Eye exam: Present: EOMI, normal appearance, conjuntiva pink, sclera anicteric - Neck Neck exam general surgery: Present: supple, trachea midline. Absent: lymphadenopathy, tenderness - Respiratory Respiratory exam: Present: CTAB. Absent: accessory muscle use, chest wall tenderness, rales, rhonchi, wheezes - Cardiovascular Cardiovascular exam: Present: RRR, +S1, +S2. Absent: diastolic murmur, gallop, rubs, systolic murmur - GI/Abdominal GI/Abdominal exam: Present: normal bowel sounds, soft. Absent: distended, hepatomegaly, tenderness - Extremities Exam Extremities exam: Present: normal capillary refill, normal inspection, warm, radial pulses palpable and symmetrical. Absent: calf tenderness, cyanotic, pedal edema, tenderness - Neurological Exam Neurological exam: Present: alert, oriented X3, no focal deficits. Absent: facial droop, speech deficit - Skin Skin exam: Present: dry, intact, normal color, warm. Absent: rash - Patient Status Disposition: Home, Self-Care Condition: Good Functional capacity at discharge: independent ambulation Overall status at discharge: patient is progressing back to baseline - Discharge Instructions Follow Up With: Arias Mendoza MD [Primary Care Provider] - Additional Instructions: Please take your medications as directed and follow up with your PCP and urology as directed. Return to the ER as needed for any other problems or concerns, or if your symptoms return or worsen. - Diet and Activity Activity: as per physical therapy Diet: advance to your usual diet
[2018-02-25] MEDS ORDERED: *HR* Heparin 5,000 UNIT/ML VIAL SQ SCH (14:00)
[2018-02-25 14:15] VITALS: BP 158/91
[2018-03-01 11:52] LABS: Calculi Mass 21 mg
== END 2018-02-25 15:06 | disposition home or self-care (01) ==
LOC: 3ANU 19:16 → EMEROOARM 19:16 → 3ANU 22:04
PROVIDERS: ADMIT Internal Medicine; ATTEND Internal Medicine